=== PATIENT | female | born 1940 | race Caucasian/White ===

== ENCOUNTER → 2018-02-11 | Outpatient (CLI) | payer MEDICARE, OTHER ==
[~2018-02-11] MED LIST: ANTI1CAP PO; ASPI-1471 PO; ATOR10TA24 PO; BIOT1TAB12 PO; CHOL100058 PO; CHOL200018 PO; CIPR-214 PO; CLOB15OI16 TP; FEXO-67 PO; FLU60SYR30 IM ONLY; FLUT1DIS28 IH; GUAI120L3 PO; LEVO-85 PO; MOMR; MONT10TA PO; NITR-105 PO; OMEG-11 PO; OMEG500C5 PO; PNEI IJ; PRED20TA6 PO; SULF1TAB24 PO
[2018-02-11 12:11] LABS: LDL CHOLESTEROL 86 mg/dl
== END ==
LOC: LAB 11:38
PROVIDERS: ATTEND Internal Medicine
DX: E78.00 Pure hypercholesterolemia, unspecified (principal); R35.0 Frequency of micturition
CPT/HCPCS: 36415; 81001; 82040; 82247; 82310; 82374; 82435; 82465; 82565; 82947; 83718; 84075; 84132; 84155; 84295; 84450; 84460; 84478; 84520; 87088

== ENCOUNTER → 2018-02-20 | Outpatient (CLI) | payer MEDICARE, OTHER ==
--- NOTE | 2018-02-20 16:24 | RADIOLOGY IMAGING REPORT ---
[place] [facility] [place] NAME: JAVIER GAMBLE : [id number] MR: [id number] V: [id number] EXAM DATE: [id number] ORDERING PHYSICIAN: JENNIFER CHANCE TECHNOLOGIST: Estephania De La Torre PROCEDURE:BILATERAL DIGITAL SCREENING MAMMOGRAM WITH CAD ASSISTED INTERPRETATION & 3D TOMOSYNTHESIS COMPARISON:Prior mammograms 12/05/16 back to 11/16/11. INDICATIONS:screening FINDINGS: The breast parenchyma consists of scattered fibroglandular tissue. The breast parenchyma is stable in appearance. No developing masses or worrisome microcalcifications. DIAGNOSTIC CATEGORY 1--NEGATIVE. RECOMMENDATIONS: ROUTINE MAMMOGRAM AND CLINICAL EVALUATION. IMPRESSION: BIRADS 1: Negative. Dictated by: Jose Cruz Quesada M.D. on 02/20/2018 at 14:44 Transcribed by: NIKOLAI on 02/20/2018 at 14:58 Approved by: Jose Cruz Quesada M.D. on 02/20/2018 at 16:23 [facility]
== END ==
LOC: MAMO 06:55
PROVIDERS: ATTEND Internal Medicine
DX: Z12.31 Encounter for screening mammogram for malignant neoplasm of breast (principal)
CPT/HCPCS: 77063; 77067

== ENCOUNTER 2018-06-13 01:58 | Day surgery (SDC) | payer MEDICARE, OTHER ==
[~2018-06-13] VITALS: Ht 165.1 cm; Wt 88.0 kg
[2018-06-13] MEDS ORDERED: LIDOCAINE/SOD BICARB 8.4% SYR ID ONE (07:00)
[2018-06-13] MEDS ORDERED: NORMOSOL R SOLN(*) 1000 ML BAG 1,000 ML IV PRN (07:00)
[2018-06-13 07:14] VITALS: BP 144/81
[2018-06-13 08:22] VITALS: BP 105/63
--- NOTE | 2018-06-13 08:26 | NUR ---
0822-pt arrives to ms from or on cart in sf position.vss .pt sleeping and does not respong to light stimuli at this time. will continue to monitor,
--- NOTE | 2018-06-13 08:32 | Short(Outpt) Discharge Summary ---
Discharge Summary Reason for Hosp/Final Diag: (1) History of colon cancer in adulthood Hospital Course & Plan: pt presented for colonoscopy. she tolerated the procedure well and there were no complications. path pending. prep inadequate. pt will be discharged home when criteria met. Departure Discharge to: Home Discharge Instructions Home Meds Active Scripts Atorvastatin Calcium (LIPITOR) 10 Mg Tablet, 1 TAB PO QODAY, #45 TAB 0 Refills Prov:JENNIFER CHANCE MD 05/28/18 Clobetasol Propionate (CLOBETASOL PROPIONATE) 15 Gm Oint...g., 0 TP BID for itching, #1 TUBE 1 Refill Apply 0.05% ointment to affected area BID prn itching Prov:NICCI SALAS MD 03/14/18 Montelukast Sodium (SINGULAIR) 10 Mg Tablet, 1 TAB PO QDAY, #10 TAB Prov:JENNIFER CHANCE MD 06/21/16 Reported Medications [place]-3 Fatty Acids/Fish Oil (FISH OIL 1,000 MG CAPSULE) 1 Each Capsule, 2 CAP PO QDAY, CAPSULE 10/05/15 Cholecalciferol (Vitamin D3) (VITAMIN D) 2,000 Unit Tablet, 1 TAB PO QDAY, CAPSULE 10/05/15 Biotin (BIOTIN) 1 Mg Tablet, 1 TAB PO QDAY 05/13/14 Antiox#10/Om3/Dha/Epa/Lut/Zeax (I-CAPS WITH LUTEIN-OMEGA 3 SFG) 1 Each Capsule, 1 EACH PO, CAPSULE 05/13/14 Aspirin (ASPIR 81) 81 Mg Tablet.dr, 1 TAB PO QDAY, TAB 05/13/14 Mometasone Furoate (NASONEX) 17 Gm [place], 1 SPRAY NA DAILY, SPRAY 05/13/14 Fluticasone/Salmeterol (ADVAIR 250-50 DISKUS) 1 Each Disk.w.dev, 1 EACH IH BID 05/13/14 Fexofenadine Hcl (LUDIN ALLERGY) 180 Mg Tablet, 1 TAB PO QDAY 05/13/14 Diet: Regular Activity: As Tolerated Special Instructions: we will call you in 10 days with biopsy results. prep was inadequate to see the entire colon. RALEIGH HARDY Jun 13, 2018 08:32
[2018-06-13 08:37] VITALS: BP 111/58
--- NOTE | 2018-06-13 08:39 | NUR ---
0838-pt wakes spontaneously at this time. vss 0840-pt given water to drink at this time. denies pain and nausea.
[2018-06-13] MEDS ORDERED: PROPOFOL EMUL(*) 10MG/ML 20 ML 40 ML ONE (08:45)
[2018-06-13 09:00] VITALS: BP_SYST 117; BP_SYST 125; BP_DIAS 72; BP_DIAS 77
[2018-06-13 09:03] VITALS: BP 128/80
--- NOTE | 2018-06-13 09:34 | NUR ---
0925-PT GIVEN VERBAL AND WRITTEN DISCHARGE INSTRUCTIONS. PT DENIES QUESTIONS OR CONCERNS. PT HAS COMPLETED ORTHOSTATICS AND DENIES DIZZINESS AND WEAKNESS ON SITTING AND STANDING AND APPEARS TO BE STEADY ON FEET. VSS PT HAS TALKED TO DR HARDY AND DENIES DIZZINESS AND WEAKNESS.
== END 2018-06-13 09:27 | disposition home or self-care (01) ==
LOC: OR 01:58
PROVIDERS: ATTEND Surgery
DX: Z85.038 Personal history of other malignant neoplasm of large intestine (principal); D12.4 Benign neoplasm of descending colon
CPT/HCPCS: 00811; 45380; 88305; J2704

== ENCOUNTER 2018-08-06 14:30 | Outpatient (RCR) | payer MEDICARE, OTHER ==
--- NOTE | 2018-05-22 18:28 | PT INITIAL EVALUATION ---
MEDICAL DIAGNOSIS: Acute pain of R shoulder TREATMENT DIAGNOSIS: Same DATE OF ONSET: 04/15/18 SUBJECTIVE: Radha Chisholm presents to physical therapy with complaints of R shoulder pain that started some time during her day trip in which she was required to lift her luggage up and down to the train. She denies remembering any one moment that the pain started. She reports that she has a history of RTC's strains that she has fully recovered from in PT prior to this injury and states that this injury feels a little different. She reports that she feels like her shoulder has improved 20% since the injury. She reports that the pain in intermittent and increases with moving her R shoulder above 90 degrees. She reports that she has difficulty putting on and taking off her bra. Furthermore, she reports that she cannot lift anything that is heavy at all. . Pain location is Anterior R shoulder. REHAB PROBLEM LIST: Increased Pain Decreased ROM Decreased Strength Decreased Endurance Decreased Function Decreased ADL's PREVIOUS MEDICAL HISTORY: See EMR OCCUPATION: Retired OBJECTIVE: Posture: She demonstrates forward head, B rounded shoulders, increased thoracic kyphosis, and decreased lumbar lordosis. ROM: R shoulder: AROM: full for flexion, abduction, scaption, ER, and IR; however, she demonstrates painful arc and end range pain with all motions. With PROM, she demonstrates end range pain or empty end feel. Strength: R shoulder: flexion: 5/5 with no pain, scaption: 4/5 with pain, abduction: 4/5 with pain. ER: 5/5 with no pain. IR: 5/5 with no pain. Palpation: TTP: LHB Sensation: Intact C2-T1 Special Tests: Speed test: positive with extreme weakness, which indicates moderate tear in LHB. Tendinopathy: positive for supraspinatus. Positive apprehension test which is probably a result of the LHB and could be due to anterior superior labrum as well. She was also positive for impingement Mobility: Independent Gait: Normal gait mechanics and normal scapulohumeral rhythm ASSESSMENT: She will benefit from skilled physical therapy addressing the listed impairments to improve function and QOL. Based on my examination, her signs and symptoms are consistent with moderate tear to the LHB (and potential superior anterior labrum problems) with tendinopathy of the supraspinatus. If she does not improve in one month will send for imaging to determine extent of LHB damage. Short Term Goals 4 weeks: Pt will demonstrate full PROM-AROM with normalized end feels to improve function and QOL. 8 weeks: Pt will demonstrate full AROM with abolished painful arc to improve function and QOL. 8 weeks: Pt will demonstrate full RTC, biceps, and periscapular muscular from baseline to 5/5 without any pain to improve function and QOL. Patient's Goals abolish pain, be able to do bra without shoulder pain, get rid of pain with moving arm overhead PLAN: Patient to be seen for Manual Therapy/STM/MET Strengthening/condition Ice/Heat Range of Motion Spinal Stabilization Ultrasound Work Hardening/Cond Stretching Iontophoresis Neuromuscular Re-ed Closed Chain Program Electrical Stim Posture/Body mechanics Home Exercise Program Therapeutic Activities 2x/Week for 2 Months If you have any questions, comments, or concerns about this report or plan, please contact me at . Thank you, Shamir Beckford, PT, DPT MTDD
--- NOTE | 2018-06-30 18:08 | PT PLAN OF CARE ---
Physician:Jocelyn Guevara MD Patient is being seen: 2x/week Therapist: Shamir Beckford, PT, DPT Medical Diagnosis: Acute pain of R shoulder Treatment Diagnosis: Same Date of Onset: 04/15/18 Date of Initial Evaluation: 05/22/18 Date patient was last seen: 06/30/18 Number of treatments: 10 Number of cancellations/No shows: 2 INTERVENTIONS: Manual Therapy/STM/MET Strengthening/condition Ice/Heat Range of Motion Spinal Stabilization Ultrasound Work Hardening/Cond Stretching Iontophoresis Neuromuscular Re-ed Closed Chain Program Electrical Stim Posture/Body mechanics Home Exercise Program Therapeutic Activities GOALS: 4 weeks: Pt will demonstrate full PROM-AROM with normalized end feels to improve function and QOL. MET 8 weeks: Pt will demonstrate full AROM with abolished painful arc to improve function and QOL. MET 8 weeks: Pt will demonstrate full RTC, biceps, and periscapular muscular from baseline to 5/5 without any pain to improve function and QOL. NM PATIENT'S GOAL: abolish pain, be able to do bra without shoulder pain, get rid of pain with moving arm overhead Status of Patient's Goals: Progressed well Patient Compliance: Excellent Prognosis: Good Reasons for continuing therapy: This is a progress note for Radha Chisholm. She reports that she is doing well. She reports that she is 92% better. She reports that she only feels any pain in her R shoulder when she is performing ER. She is progressing well within PT with the following improvements: abolished pain with MMT's with flexion, abduction, scaption, IR, and ER, abolished impingement unless she is in 90-90 position, increased periscapular strength and abolished pain during her day to day functional activities. She continues to be independent with her HEP. We will continue to improve strength and return to prior level of function. Posture: She demonstrates forward head, B rounded shoulders, increased thoracic kyphosis, and decreased lumbar lordosis. ROM: R shoulder: AROM: full for flexion, abduction, scaption, ER, and IR; however, she demonstrates no painful arc and no end range pain with all motions. Strength: R shoulder: flexion: 5/5 with no pain, scaption: 4+/5 with no pain, abduction: 4+/5 with no pain. ER: 5/5 with no pain. IR: 5/5 with no pain. Special Tests: Speed test: negative. Tendinopathy: negative for supraspinatus. Positive apprehension test which is probably a result of the LHB and could be due to anterior superior labrum as well. Mobility: Independent If you have any questions, please contact me at [phone]. Thank you, Shamir Beckford, PT, DPT TISH
--- NOTE | 2018-08-07 16:10 | PT PLAN OF CARE ---
Physician: Jocelyn Guevara MD Patient is being seen: 2x/week Therapist: Shamir Beckford, PT, DPT Medical Diagnosis: Acute pain of R shoulder Treatment Diagnosis: Same Date of Onset: 04/15/18 Date of Initial Evaluation: 05/22/18 Date patient was last seen: 08/06/18 Number of treatments: 20 Number of cancellations/No shows: 0 INTERVENTIONS: Manual Therapy/STM/MET Strengthening/condition Ice/Heat Range of Motion Spinal Stabilization Ultrasound Work Hardening/Cond Stretching Iontophoresis Neuromuscular Re-ed Closed Chain Program Electrical Stim Posture/Body mechanics Home Exercise Program Therapeutic Activities GOALS: 4 weeks: Pt will demonstrate full PROM-AROM with normalized end feels to improve function and QOL. MET 8 weeks: Pt will demonstrate full AROM with abolished painful arc to improve function and QOL. MET 8 weeks: Pt will demonstrate full RTC, biceps, and periscapular muscular from baseline to 5/5 without any pain to improve function and QOL. MET PATIENT'S GOAL: abolish pain, be able to do bra without shoulder pain, get rid of pain with moving arm overhead Status of Patient's Goals: MET Patient Compliance: Excellent Prognosis: Good Reasons for continuing therapy: This is a discharge note for Radha Chisholm. She reports that she is doing well. She reports that her shoulder has returned to 98% of what it used to be. She reports that the sleeping is no longer painful. She also reports that she can lift things above her head without any pain. Overall, she reports that she is doing well and feels like she is doing well with her independent home program. She has progressed well within PT and has demonstrated the following improvements: increased R shoulder AROM in all directions with normalized end feels, increased RTC and periscapular strength, increased LHB strength, abolished resting pain, and return to prior level of function. She is independent with her home exercise program. She has met all of her goals. As a result, she will be discharged from PT to [facility]. Posture: She demonstrates forward head, B rounded shoulders, increased thoracic kyphosis, and decreased lumbar lordosis. ROM: R shoulder: AROM: full for flexion, abduction, scaption, ER, and IR; however, she demonstrates no painful arc and no end range pain with all motions. Strength: R shoulder: flexion: 5/5 with no pain, scaption: 5/5 with no pain, abduction: 5/5 with no pain. ER: 5/5 with no pain. IR: 5/5 with no pain. Special Tests: Speed test: negative. Tendinopathy: negative for supraspinatus. Negative apprehension test Mobility: Independent If you have any questions, please contact me at [phone]. Thank you, Shamir Beckford, PT, DPT DIONID
[2018-08-20] MEDS ORDERED: ATOR10TA24 PO (11:19)
== END 2018-08-06 18:00 | disposition home or self-care (01) ==
LOC: PT 14:30
PROVIDERS: ATTEND Family Medicine
DX: M25.511 Pain in right shoulder (principal)
CPT/HCPCS: 97162

== ENCOUNTER 2018-10-03 01:03 | Day surgery (SDC) | payer MEDICARE, OTHER ==
[~2018-10-03] VITALS: Ht 167.6 cm; Wt 87.5 kg
[~2018-10-03 01:03] MED LIST changes: +LEVA15HF2
[2018-10-03] MEDS ORDERED: NORMOSOL R SOLN(*) 1000 ML BAG 1,000 ML IV PRN (06:30)
[2018-10-03] MEDS ORDERED: LIDOCAINE/SOD BICARB 8.4% SYR ID ONE (06:30)
[2018-10-03 06:44] VITALS: BP 133/74
[2018-10-03] MEDS ORDERED: PROPOFOL EMUL(*) 10MG/ML 20 ML 40 ML ONE (07:10)
[2018-10-03] MEDS ORDERED: LIDOCAINE MPF 1% 5 ML VIAL ONE (07:10)
[2018-10-03 07:42] VITALS: BP 118/65
--- NOTE | 2018-10-03 07:50 | NUR ---
able to arouse pt. informed procedure over. encouraged to rest
--- NOTE | 2018-10-03 07:50 | Short(Outpt) Discharge Summary ---
Discharge Summary Reason for Hosp/Final Diag: (1) H/O malignant neoplasm of colon Hospital Course & Plan: pt presented for colonoscopy. she tolerated the procedure well and will be discharged home when criteria met. Departure Discharge to: Home Discharge Instructions Home Meds Active Scripts Clobetasol Propionate (CLOBETASOL PROPIONATE) 15 Gm Oint...g., 0 TP BID for itching, #3 TUBE 1 Refill Apply 0.05% ointment to affected area BID prn itching Prov:NICCI SALAS MD 09/05/18 Atorvastatin Calcium (LIPITOR) 10 Mg Tablet, 1 TAB PO QODAY for 90 Days, #90 TAB 0 Refills Prov:NISH JONES MD 08/20/18 Montelukast Sodium (SINGULAIR) 10 Mg Tablet, 1 TAB PO QDAY, #10 TAB Prov:JENNIFER CHANCE MD 06/21/16 Reported Medications Levalbuterol Tartrate (Levalbuterol Tartrate Hfa) 45 Mcg/Actuation Hfa.aer.ad 09/25/18 [place]-3 Fatty Acids/Fish Oil (FISH OIL 1,000 MG CAPSULE) 1 Each Capsule, 2 CAP PO QDAY, CAPSULE 10/05/15 Cholecalciferol (Vitamin D3) (VITAMIN D) 2,000 Unit Tablet, 1 TAB PO QDAY, CAPSULE 10/05/15 Biotin (BIOTIN) 1 Mg Tablet, 1 TAB PO QDAY 05/13/14 Antiox#10/Om3/Dha/Epa/Lut/Zeax (I-CAPS WITH LUTEIN-OMEGA 3 SFG) 1 Each Capsule, 1 EACH PO, CAPSULE 05/13/14 Aspirin (ASPIR 81) 81 Mg Tablet.dr, 1 TAB PO QDAY, TAB 05/13/14 Mometasone Furoate (NASONEX) 17 Gm [place], 1 SPRAY NA DAILY, SPRAY 05/13/14 Fluticasone/Salmeterol (ADVAIR 250-50 DISKUS) 1 Each Disk.w.dev, 1 EACH IH BID 05/13/14 Fexofenadine Hcl (LUDIN ALLERGY) 180 Mg Tablet, 1 TAB PO QDAY 05/13/14 Diet: Regular Activity: As Tolerated Special Instructions: repeat colonoscopy in 5 yrs. RALEIGH HARDY Oct 03, 2018 07:50
[2018-10-03 08:01] VITALS: BP 131/77
--- NOTE | 2018-10-03 08:29 | NUR ---
0805 SBAR FROM Amada MIRAMONTES, RN, PT ALERT, DENIES PAIN ALLOWED TO CONTINUE RESTING 0812 DR. HARDY AT BEDSIDE TO INFORM PT OF FINDINGS 0830 PT RESTING, BUT AROUSABLE, DECLINES FOOD/DRINK, VSS
[2018-10-03 08:30] VITALS: BP 129/73
[2018-10-03 08:35] VITALS: BP 138/82
[2018-10-03 08:37] VITALS: BP 148/72
--- NOTE | 2018-10-03 09:19 | NUR ---
0835 PT READY TO GO, ORTHOSTATICS DONE, STABLE, PT ALLOWED TO DRESS, IV D/C FROM TUBING, CALLED [facility]IDE, LEFT MSG 0840 D/C INSTRUCTIONS COVERED WITH PT 0845 IV OUT,PRESSURE DRESSING APPLIED, REASSESSED, UNREMARKABLE 0900 D/C INSTRUCTIONS COVERED WITH FRIEND STEVENSON 0903 OUT TO CAR BY FOOD, ALL BELONGINGS WITH PT, STEADY ON FEET.
== END 2018-10-03 09:03 | disposition home or self-care (01) ==
LOC: OR 01:03
PROVIDERS: ATTEND Surgery
DX: Z12.11 Encounter for screening for malignant neoplasm of colon (principal); Z85.038 Personal history of other malignant neoplasm of large intestine
CPT/HCPCS: 00812; G0121; J2001; J2704